=== PATIENT | male | born 1970 | race Caucasian/White ===

== ENCOUNTER 2024-01-05 22:28 | Inpatient (IN) | payer MEDICAID ==
[~2024-01-05] VITALS: Ht 180.3 cm; Wt 55.8 kg
[2024-01-05 22:36] VITALS: BP 180/79; PULSE 95; RESP 18; TEMP 97.9; O2SAT 97
[2024-01-05 23:11] LABS: BASOPHILS # (AUTO) 0.2 K/uL (0.00-0.22); BASOPHILS % (AUTO) 1.4 % (0.0-2.0); EOSINOPHILS # (AUTO) 0.4 K/uL (0-0.4); EOSINOPHILS % (AUTO) 3.3 % (0.0-4.0); HEMATOCRIT 35.5 % (36-52); HEMOGLOBIN 11.7 g/dL (12.0-18.0); LYMPHOCYTES # (AUTO) 1.5 K/uL (2.0-11.5); LYMPHOCYTES % (AUTO) 13.4 % (20.5-51.1); MEAN CORPUSCULAR HEMOGLOBIN 29 pg (27-31); MEAN CORPUSCULAR HGB CONC 33 g/dL (33-37); MEAN CORPUSCULAR VOLUME 89.1 fL (80-94); MONOCYTES # (AUTO) 1.2 K/uL (0.8-1.0); MONOCYTES % (AUTO) 10.9 % (1.7-9.3); PLATELET COUNT (AUTO) 425 K/uL (140-450); RED BLOOD CELL COUNT(AUTO) 3.98 MIL/uL (4.20-6.10); RED CELL DISTRIBUTION WIDTH 18.1 % (11.6-13.7); WHITE BLOOD COUNT (AUTO) 11.2 K/uL (4.8-10.8)
[2024-01-05 23:34] LABS: ALANINE AMINOTRANSFERASE 16 U/L (12-78); ALBUMIN 3.1 g/dL (3.4-5.0); ALKALINE PHOSPHATASE 140 U/L (50-136); ANION GAP 11.1 (8-16); ASPARTATE AMINOTRANSFERASE 17 U/L (15-37); CALCIUM 8.8 mg/dL (8.5-10.1); CARBON DIOXIDE 35.9 mmol/L (21-32); CHLORIDE 92 mmol/L (98-107); GFR ARICAN-AMERICAN 10 mL/min (>90); GFR NON ARICAN-AMERICAN 9 mL/min (>90); GLUCOSE 194 mg/dL (74-106); SODIUM SERUM 135 mmol/L (136-145); TOTAL BILIRUBIN 0.4 mg/dL (0.0-1.0); TOTAL PROTEIN, SERUM 6.6 g/dL (6.4-8.2); UREA NITROGEN, BLOOD 39 mg/dL (7-18)
[2024-01-05 23:35] LABS: CREATININE 7.2 mg/dL (0.6-1.3)
[2024-01-06] VITALS (7 sets, daily range): BP systolic 155–174; BP diastolic 71–84; PULSE 78–96; RESP 16–18; TEMP 97.7–98.9; O2SAT 96–100
[2024-01-06] MEDS: FUROSEMIDE 40 MG TAB PO ONE (02:14)
[2024-01-06] MEDS ORDERED: ONDANSETRON 4 MG/2 ML VIAL IVP PRN (02:30)
[2024-01-06] MEDS ORDERED: MORPHINE SULFATE 2 MG/ML SYR IVP PRN (02:30)
[2024-01-06] MEDS: ALPRAZolam 0.5 MG TAB PO ONE ×2 (02:39→23:00)
[2024-01-06] MEDS ORDERED: HEPARIN PER PHARMACY MC PRN (08:15)
[2024-01-06 09:45] LABS: INR 0.99 (0.8-1.2); PARTIAL THROMBOPLASTIN TIME 31.9 secs (22-35.6); PROTHROMBIN TIME 10.4 secs (10.8-13.4)
[2024-01-06] MEDS: hePARIN / DEXT 5% PREMIX 250 ML IV ONE (10:26)
[2024-01-06] MEDS: hePARIN / DEXT 5% PREMIX 250 ML IV SCH (10:35)
[2024-01-06] MEDS ORDERED: hydrALAZINE 25 MG TAB PO PRN (18:40)
[2024-01-06] MEDS: hydrALAZINE 25 MG TAB PO PRN (19:14)
[2024-01-07] VITALS: BP 166/69; PULSE 92; RESP 18; TEMP 97.5; O2SAT 100
[2024-01-07 08:00] VITALS: PULSE 94; RESP 18; O2SAT 100
[2024-01-07] MEDS: hydrALAZINE 25 MG TAB PO SCH (11:53)
[2024-01-07] MEDS: ASPIRIN 81 MG TAB.CHEW PO SCH (11:53)
[2024-01-07 12:21] VITALS: BP 182/93; PULSE 86; RESP 18; TEMP 98; O2SAT 95
[2024-01-07] MEDS ORDERED: ALPRAZolam 0.5 MG TAB PO SCH (21:00)
== END 2024-01-07 14:42 | disposition left against medical advice (07) | DRG 194 ==
LOC: MED 22:28 → EDBD 01-06 02:43 → MTU 01-06 02:43
PROVIDERS: ADMIT Internal Medicine; ATTEND Internal Medicine
PROC: 5A1D70Z Performance of Urinary Filtration, Intermittent, Less than 6 Hours Per Day (ICD-10-PCS; principal; 2024-01-06)
DX: I13.2 Hypertensive heart and chronic kidney disease with heart failure and with stage 5 chronic kidney disease, or end stage renal disease (principal); J18.9 Pneumonia, unspecified organism; N18.6 End stage renal disease; I24.89 Other forms of acute ischemic heart disease; D63.8 Anemia in other chronic diseases classified elsewhere; E11.22 Type 2 diabetes mellitus with diabetic chronic kidney disease; E87.1 Hypo-osmolality and hyponatremia; E87.70 Fluid overload, unspecified; I50.43 Acute on chronic combined systolic (congestive) and diastolic (congestive) heart failure; I16.1 Hypertensive emergency; I25.10 Atherosclerotic heart disease of native coronary artery without angina pectoris; Z91.199 Patient's noncompliance with other medical treatment and regimen due to unspecified reason; Z99.2 Dependence on renal dialysis; Y95 Nosocomial condition
CPT/HCPCS: 36415; 71045; 80053; 84484; 85025; 85610; 85730; 87081; 90935; 93005; 99291; J1644; Q0092

== ENCOUNTER 2024-03-10 11:22 | Emergency (ER) | payer MEDICAID ==
[~2024-03-10] VITALS: Ht 177.8 cm; Wt 59.0 kg
[2024-03-10 11:52] VITALS: BP 182/86; PULSE 96; RESP 18; TEMP 97.3; O2SAT 99
[2024-03-10 12:55] LABS: BASOPHILS % (AUTO) 0.3 % (0.0-2.0); EOSINOPHILS # (AUTO) 0.6 K/uL (0-0.4); HEMATOCRIT 28.6 % (36-52); HEMOGLOBIN 9.3 g/dL (12.0-18.0); LYMPHOCYTES # (AUTO) 0.7 K/uL (2.0-11.5); LYMPHOCYTES % (AUTO) 7.9 % (20.5-51.1); MEAN CORPUSCULAR HEMOGLOBIN 30 pg (27-31); MEAN CORPUSCULAR HGB CONC 33 g/dL (33-37); MEAN CORPUSCULAR VOLUME 91.2 fL (80-94); MONOCYTES # (AUTO) 0.9 K/uL (0.8-1.0); MONOCYTES % (AUTO) 10.6 % (1.7-9.3); NEUTROPHILS # (AUTO) 6.3 K/uL (1.8-7.7); NEUTROPHILS % (AUTO) 74.2 % (42.2-75.2); PLATELET COUNT (AUTO) 403 K/uL (140-450); RED BLOOD CELL COUNT(AUTO) 3.13 MIL/uL (4.20-6.10); RED CELL DISTRIBUTION WIDTH 21.8 % (11.6-13.7); WHITE BLOOD COUNT (AUTO) 8.6 K/uL (4.8-10.8)
[2024-03-10 13:22] VITALS: BP 170/80; PULSE 93; RESP 18; TEMP 97.7; O2SAT 99
[2024-03-10 13:39] LABS: ANION GAP 13.2 (8-16); CALCIUM 7.9 mg/dL (8.5-10.1); CARBON DIOXIDE 30.7 mmol/L (21-32); POTASSIUM 3.9 mmol/L (3.5-5.1)
[2024-03-10 13:44] LABS: INR 1.02 (0.8-1.2); PARTIAL THROMBOPLASTIN TIME 37.7 secs (22-35.6); PROTHROMBIN TIME 10.7 secs (10.8-13.4)
[2024-03-10 13:46] LABS: CREATININE 7.2 mg/dL (0.6-1.3)
[2024-03-10 13:49] LABS: ALANINE AMINOTRANSFERASE 13 U/L (12-78); ALBUMIN 2.8 g/dL (3.4-5.0); ALKALINE PHOSPHATASE 153 U/L (50-136); ASPARTATE AMINOTRANSFERASE 16 U/L (15-37); BILIRUBIN,DIRECT 0.1 mg/dL (0.0-0.3); TOTAL BILIRUBIN 0.4 mg/dL (0.0-1.0); TOTAL PROTEIN, SERUM 6.6 g/dL (6.4-8.2)
== END 2024-03-10 14:01 | disposition home or self-care (01) ==
LOC: MED 11:22
DX: R07.9 Chest pain, unspecified (principal); R11.0 Nausea; Z02.89 Encounter for other administrative examinations; I13.2 Hypertensive heart and chronic kidney disease with heart failure and with stage 5 chronic kidney disease, or end stage renal disease; E11.22 Type 2 diabetes mellitus with diabetic chronic kidney disease; N18.6 End stage renal disease; I50.9 Heart failure, unspecified; I25.2 Old myocardial infarction; Z99.2 Dependence on renal dialysis
CPT/HCPCS: 36415; 71045; 80048; 80076; 83880; 84484; 85025; 85610; 85730; 93005; 99285

== ENCOUNTER 2024-04-09 13:45 | Emergency (ER) | payer MEDICAID | END 2024-04-09 14:13 | disposition left against medical advice (07) | LOC: MED 13:45 | DX: Z99.81 Dependence on supplemental oxygen (principal); Z53.21 Procedure and treatment not carried out due to patient leaving prior to being seen by health care provider ==